=== PATIENT | male | born 1955 | race Hispanic/Latino ===

== ENCOUNTER 2019-04-02 18:43 | Emergency (ER) | payer MEDICARE ==
--- NOTE | 2019-04-02 19:32 | Emergency Department Report ---
HPI - General Time Seen by Provider: 04/02/19 18:59 - HPI HPI: 53-year-old male presents to the emergency department via EMS from a [facility] facility in cardiac arrest. The patient is unresponsive, there is no family or staff at bedside, and all information has been obtained by EMS. Allegedly the patient was seen choking on some food while in the cafeteria this evening. However when EMS arrived the patient was unresponsive, pulseless and in his bedroom with staff performing CPR. This all apparently occurred about 20 minutes prior to arrival in our emergency department. EMS began ACLS protocol including placing a Nikko airway, IV placement, chest compressions, bag valve ventilation and the patient received 2 rounds of epinephrine. Overall EMS that the patient was in asystole with one short transient return of spontaneous circulation before he went back into asystole. Records show that the patient is blind with a history of diabetes and hypertension. It does not appear that this patient has been to this facility previously. ED Review of Systems ROS: Stated complaint: CARDIAC ARREST Other details as noted in HPI Comment: Unobtainable due to pts medical conditions Physical Exam - Physical Exam Physical Exam: GENERAL: The patient is ill appearing and unresponsive. HEENT: Normocephalic. Atraumatic. EYES: Pupils are fixed and dilated. NECK: Supple. Trachea is midline CHEST/LUNGS: No spontaneous breath sounds. HEART/CARDIOVASCULAR: No spontaneous heart sounds. ABDOMEN: Abdomen is soft and not distended. SKIN: Skin is cool and dry. Patient's lips and face appears cyanotic. NEURO: The patient is unresponsive to any verbal or tactile or painful stimuli. MUSCULOSKELETAL: No obvious deformity. No palpable radial or femoral pulses. - Intubation Time Out Performed: No Sedative: none Laryngoscope: other (Glidescope) Size: 4 ET Tube Size: 7.5 Tube Secured Depth (cm): 24 Tube Secured Location: lips Tube Placement Confirmation: visualized tube passing t, equal breath sounds bilat Intubation Complications: none Additional Comments: There was a large amount of food material seen in the oropharynx but the vocal were visualized after suction. There was no resistance to tube placement. ED Medical Decision Making - Medical Decision Making This patient presents in cardiac arrest. He received 2 rounds of epinephrine, had a Nikko airway with bag valve ventilation and was getting chest compressions prior to arrival. He was mostly in asystole with 1 transient return of spontaneous circulation. The patient was brought to room 23 upon arrival to the emergency department. Chest compressions continued even through the transfer to our [facility]. The Nikko airway was removed and the patient was intubated with a 7.5 ET tube per the procedure section. The patient was placed on the monitor as ACLS protocol continued. Overall the patient received 5 rounds of epinephrine, 1 amp of sodium bicarbonate. With each pulse and rhythm check the patient appeared to be in pulseless electrical activity, except for the fifth round. At that time the patient appeared to go into a ventricular fibrillation and he was defibrillated with 200 J. He received yet another epinephrine, chest compressions, bag valve ventilation. At this time his rhythm appeared to go in between asystole, PEA and ventricular fibrillation. Once again the patient was pulseless when checked at the femoral and radial arteries. I took a bedside ultrasound to look at his heart and there was absolutely no movement, squeeze or even flutter. Time of called. - Differential Diagnosis choking, dysrhythmia, PE, ID Critical Care Time: Yes Critical care time in (mins) excluding proc time.: 31 Critical care attestation.: If time is entered above; I have spent that time in minutes in the direct care of this critically ill patient, excluding procedure time. Critical care time was spent on this patient doing his initial evaluation, discussion with EMS, and supervision of ACLS protocol. This does not include the time spent doing the intubation procedure. Critical Care Time: 31 minutes ED Disposition Clinical Impression: Cardiopulmonary arrest Acute respiratory failure Qualifiers: Respiratory failure complication: unspecified whether with hypoxia or hypercapnia Qualified Code(s): J96.00 - Acute respiratory failure, unspecified w hether with hypoxia or hypercapnia Disposition: DC-20 Is pt being admited?: No Time of Disposition: 22:09
== END 2019-04-03 01:00 ==
LOC: EDBD → ED 18:43
DX: I46.9 Cardiac arrest, cause unspecified (principal); J96.00 Acute respiratory failure, unspecified whether with hypoxia or hypercapnia
CPT/HCPCS: 31500; 92950